=== PATIENT | male | born 1955 | race Caucasian/White ===

== ENCOUNTER 2020-09-05 12:38 | Emergency (ER) | payer BC, SELFPAY ==
--- NOTE | ~2020-09-05 | CT_ITS ---
EXAMINATION: CT abdomen pelvis wo con EXAM DATE: 09/05/2020 13:21 INDICATION: flank pain, bilateral . Bilateral flank pain, hematuria and nausea. TECHNIQUE: Spiral CT of the abdomen and pelvis was performed without contrast. Axial, coronal and sag ittal images were reviewed. The dose-length product (DLP) for this examination was 473.97 mGy-cm. T he exposure was tailored according to patient size (auto mA exposure control), and iterative reconstr uction (ASIR) was used as additional dose reduction technique. There is no prior study for compariso n. FINDINGS: There is no nephrolithiasis or hydronephrosis. There is mild prostatomegaly. The bladder is unremarkable. The liver, spleen, adrenal glands and pancreas are unremarkable. There are gallsto josh within an otherwise unremarkable gallbladder. No evidence of obstructive biliary disease. There is a stone in the right ureteropelvic junction measuring 8 mm in diameter, mild right-sided obstructi ve nephropathy. No other genitourinary calcifications. There is no retroperitoneal or pelvic lymphad enopathy. The appendix is normal. The stomach and small bowel are unremarkable. There is expected amount of c olonic stool. No free intraperitoneal gas. The heart is normal in size. There are no pericardial or pleural effusions. The lung bases are unremarkable. There are no osteoblastic or osteolytic les ions identified. IMPRESSION: Right UVJ 8 mm stone, mild obstructive nephropathy. Urologist consultants would appreciat e KUB as baseline for follow-up, treatment planning. Reviewed, dictated and finalized at location [facility]. [employer] IMPRESSION: Right UVJ 8 mm stone, mild obstructive nephropathy. Urologist consu ltants would appreciate KUB as baseline for follow-up, treatment planning.
--- NOTE | ~2020-09-05 | XR_ITS ---
XR abdomen/kub 1V DATE: 09/05/2020 14:07 INDICATION: Right flank pain. Kidney stone. TECHNIQUE: AP portable supine views COMPARISON: 09/05/[address] abdomen pelvis FINDINGS: There is a calcified calculus at the proximal right ureter at the L4 level. No other urinar y tract calcification is detected. The psoas shadows are intact. No apparent visceromegaly. The bowel gas pattern is unremarkable, without evidence of obstruction. Transitional lumbosacral vertebra. IMPRESSION: Calcified calculus of proximal right ureter Reviewed, dictated and finalized at [facility]. Reviewed, dictated and finalized at location B. R [employer]
[2020-09-05 12:46] VITALS: BP 169/100; PULSE 63; RESP 14; TEMP 36.3; O2SAT 100
--- NOTE | 2020-09-05 12:54 | ED.MALEGU ---
HPI - Male Genitourinary General Chief complaint: Urogenital-Male Stated complaint: covid/kidney pain Time Seen by Provider: 09/05/20 12:52 History of Present Illness HPI Narrative: Bilateral flank pain since this morning. Associated with nausea, vomiting, and transient hematuria. He has never had these symtpoms before. He was diagnosed with COVID-19 a few days ago. He was having a headache and fatigue. He reports a chronic cough, unchanged. No SOB, CP. Related Data Allergies Allergy/AdvReac Type Severity Reaction Status Date / Time No Known Allergies AdvReac Unknown Unverified 10/09/04 08:14 Review of Systems Review of Systems: All systems reviewed & are unremarkable except as noted in HPI and below Constitutional: Constitutional: Denies chills, Denies fever(s) and Denies weakness Cardiovascular: Cardiovascular: Denies chest pain Respiratory: Respiratory: Reports cough and Denies dyspnea Gastrointestinal: Gastrointestinal: Reports abdominal pain, Denies constipation, Denies diarrhea, Reports nausea and Reports vomiting Genitourinary: Genitourinary: Reports hematuria, Reports oliguria and Denies dysuria Musculoskeletal: Musculoskeletal: Reports back pain Neurologic: Denies dizziness, Denies numbness and Denies weakness [facility] Family History Family History Mother Carcinoma of colon Other No family history of cardiovascular disease Social History Social History Smoking status: Never smoker Alcohol intake: current Exam Const: General: healthy appearing, no acute distress and alert Orientation/consciousness: patient oriented x3 HENMT: Head: normal to inspection Resp: Effort & Inspection: normal respiratory effort Auscultation: clear to auscultation bilaterally Cardio: Rate: regular rate Rhythm: regular rhythm GI: Inspection: non-distended GI Palp: Yes Soft to palpation, Yes Tenderness to palpation present (GI) (periumbilical), No Guarding due to palpation present (GI) and No Rebound tenderness present Skin: General skin exam: normal color and no pallor Rashes: rash noted Wounds: wound noted Neuro: General: patient oriented x3, moves all extremities and no focal motor deficits Cranial nerves: Yes CN's II-XII intact bilaterally Speech: normal speech Extrem: General: normal to inspection and no edema Course Vital Signs Vital signs: Vital Signs Temperature 36.3 C L 09/05/20 12:46 Pulse Rate 63 09/05/20 12:46 Respiratory Rate 14 09/05/20 12:46 Blood Pressure 169/100 H 09/05/20 12:46 Pulse Oximetry 100 09/05/20 12:46 Temperature 36.3 C L 09/05/20 12:46 Pulse Rate 77 09/05/20 16:39 Respiratory Rate 16 09/05/20 16:39 Blood Pressure 160/86 H 09/05/20 16:39 Pulse Oximetry 99 09/05/20 16:39 MDM - Male Genitourinary MDM Narrative Medical decision making narrative: 8 mm ureteral stone. He is not a candidate for any elective procedures at this time due to recent positive COVID test. I will provide pain control and flomax and urolgy will arrange a telel health visit in the next few days. Differential Diagnosis Differential diagnosis: Likely urinary tract infection, acute retention of urine and other (kidney stone, low back strain, COVID-19) Medical Records Attestation: I reviewed the patient's medical records. Lab Data Attestation: I reviewed the patient's lab results. Result diagrams: 09/05/20 13:14 09/05/20 13:14 Labs: Lab Results 09/05/20 09/05/20 09/05/20 Range/Units 13:14 13:14 13:14 WBC 7.3 (4.5-10.0) K/mm3 RBC 5.39 (4.6-6.20) M/mm3 Hgb 16.1 (14.0-18.0) g/dL Hct 47.4 (42.0-52.0) % MCV 87.9 (80-100) fl MCH 29.9 (26-34) pg MCHC 34.0 (32-36) g/dl RDW 12.9 (11.5-14.5) % Plt Count 217 (150-375) k/mm3 MPV 10.7 H (7.4-10.4) fl Immature Gran % (Auto) 0.5 (0-0.
[2020-09-05] MEDS: SODIUM CHLORIDE 0.9% IV 1,000 ML 999 ML IV CONT (13:11)
[2020-09-05] MEDS: MORPHINE SULFATE (*CRX) 4 MG/ML INJ IV PUSH (13:11)
[2020-09-05] MEDS: ONDANSETRON INJ 4 MG/2 ML VIAL IV PUSH (13:11)
[2020-09-05 13:22] LABS: Basophils Percent Auto 0.3 % (0.2-1.2); Hematocrit 47.4 % (42.0-52.0); Hemoglobin 16.1 g/dL (14.0-18.0); Immature Granulocyte Absolute 0.04 K/mm3 (0.00-0.031); Immature Granulocyte Percent A 0.5 % (0-0.5); Lymphocytes Absolute Auto 0.49 K/mm3 (0.9-3.2); Lymphocytes Percent Auto 6.7 % (18.3-44.2); Mean Corpuscular Hemoglobin 29.9 pg (26-34); Mean Corpuscular Volume 87.9 fl (80-100); Mean Platelet Volume 10.7 fl (7.4-10.4); Monocytes Absolute Auto 0.3 K/mm3 (0.1-0.6); Monocytes Percent Auto 4.1 % (2.6-8.5); Neutrophils Absolute Auto 6.4 K/mm3 (1.3-6.7); Neutrophils Percent Auto 88.4 % (45.5-73.1); Platelet Count Result 217 k/mm3 (150-375); Red Blood Count 5.39 M/mm3 (4.6-6.20); Red Cell Distribution Width 12.9 % (11.5-14.5); White Blood Count 7.3 K/mm3 (4.5-10.0)
[2020-09-05 13:34] LABS: Alanine Aminotransferase 25 U/L (4-50); Albumin Level 5.1 g/dL (3.5-5.1); Alkaline Phosphatase 66 U/L (38-126); Anion Gap 14 mmol/L (8-16); Aspartate Amino Transferase 30 U/L (17-59); Bilirubin,Total 0.6 mg/dL (0.2-1.3); Blood Urea Nitrogen 20 mg/dL (9-20); Calcium 9.5 mg/dL (8.4-10.2); Carbon Dioxide 25 mmol/L (22-30); Chloride 103 mmol/L (98-107); Estimated CRCL calculation 56 ml/min; Estimated Glomerular Filt Rate 51; Glucose 130 mg/dL (75-110); Lipase 204 U/L (23-300); Potassium 4.2 mmol/L (3.4-5.0); Sodium 142 mmol/L (137-145)
[2020-09-05 13:35] LABS: Lactic Acid Reflex 2.1 mmol/L (0.7-2.1)
[2020-09-05 13:41] LABS: Add Urine Microscopic? YES; Appearance Urine Clear (Clear); Bilirubin Urine Negative (Negative); Blood Urine 2+ (Negative); Color Urine Yellow (Yellow); Glucose Urine UA Negative (Negative); Ketones Urine 1+ mg/dL (Negative); Leukocyte Esterase Ur Negative LEU/UL (Negative); Mucus Urine Few /lpf; Nitrate Urine Negative (Negative); Protein Urine 1+ mg/dL (Negative); Specific Grav Ur 1.021 (1.001-1.035); Urobilinogen Urine Negative mg/dL (<2.0); WBC Urine 0-3 /hpf
[2020-09-05] MEDS: TAMSULOSIN HCL 0.4 MG CAPSULE PO (13:45)
[2020-09-05] MEDS: METOCLOPRAMIDE HCL INJ 10 MG/2 ML VIAL IV PUSH (14:46)
[2020-09-05 15:39] VITALS: BP 157/60; PULSE 70; RESP 14; O2SAT 99
[2020-09-05 16:19] LABS: Reflex Lactic Acid Yes or No Add Lactic
[2020-09-05 16:39] VITALS: BP 160/86; PULSE 77; RESP 16; O2SAT 99
== END 2020-09-05 16:40 | disposition home or self-care (01) ==
PROVIDERS: Emergency Provider Emergency Medicine
DX: N13.8 Other obstructive and reflux uropathy (principal); N20.1 Calculus of ureter; U07.1 COVID-19
CPT/HCPCS: 36415; 74018; 74176; 80053; 81001; 83605; 83690; 85025; 96361; 96374; 96375; 99284; A9270; J2270; J2405; J2765; J7030

== ENCOUNTER 2023-09-11 13:30 | Outpatient (RCR) | payer MEDICARE, SELFPAY | END 2023-09-11 23:59 | disposition home or self-care (01) | LOC: ANHCPREHAB 13:30 | DX: Z95.1 Presence of aortocoronary bypass graft (principal) | CPT/HCPCS: 93798 ==